=== PATIENT | male | born 1980 | race Caucasian/White ===

== ENCOUNTER 2025-05-06 13:47 | Emergency (ER) | payer MEDICAID ==
[~2025-05-06] VITALS: Ht 170.2 cm; Wt 97.0 kg
[2025-05-06] MEDS: HALOPERIDOL LACTATE 5MG/ML VIAL IM ONE ×2 (14:51→14:59)
[2025-05-06] MEDS: MIDAZOLAM HCL 2 MG/2 ML VIAL IM ONE ×2 (14:51→14:59)
[2025-05-06 14:59] VITALS: O2SAT 96
[2025-05-06] MEDS: DIPHENHYDRAMINE 50MG/ML VIAL IM ONE (14:59)
[2025-05-06 15:16] LABS: BASOPHILS % 0.6 % (0.0-2.0); EOSINOPHILS % 0.4 % (0.0-5.0); HEMATOCRIT. 44.2 % (42.0-52.0); HEMOGLOBIN. 14.9 g/dL (14.0-18.0); LYMPHOCYTES % 12.3 % (20.0-50.0); MEAN PLATELET VOLUME 7.1 fl (7.4-10.4); MONOCYTES % 5.0 % (2.0-8.0); NEUTROPHILS % 81.7 % (40.0-76.0); PLATELET 278 x1000/uL (130-400); RED BLOOD CELL COUNT 5.09 mill/uL (4.7-6.1); RED CELL DISTRIBUTION WIDTH 13.5 % (11.6-14.6)
[2025-05-06 15:29] LABS: CREATININE 1.4 mg/dL (0.6-1.3); UREA NITROGEN BLOOD 24 mg/dL (9-23)
[2025-05-06 15:30] LABS: ETHANOL BLOOD < 10 mg/dL (<10); PROTEIN TOTAL 7.6 g/dL (6.0-8.3)
[2025-05-06 15:31] LABS: ASPARTATE AMINOTRANSFERASE 88 IU/L (<34); BILIRUBIN DIRECT 0.6 mg/dL (<=3.0); BILIRUBIN TOTAL 2.0 mg/dL (0.1-1.0)
[2025-05-06 20:16] LABS: *AMPHETAMINES SCREEN URINE PRESUMPTIVE POSITIVE (NEGATIVE); *BARBITURATES SCREEN URINE NEGATIVE (NEGATIVE); *BENZODIAZEPINES SCREEN URINE PRESUMPTIVE POSITIVE (NEGATIVE); *COCAINE SCREEN URINE NEGATIVE (NEGATIVE); CANNABINOID URINE SCREEN NEGATIVE (NEGATIVE); ECSTASY MDMA SCREEN URINE CONF.TEST INDICATED (NEGATIVE); METHADONE URINE SCREEN NEGATIVE (NEGATIVE); OPIATES URINE SCREEN NEGATIVE (NEGATIVE); PHENCYCLIDINE URINE SCREEN NEGATIVE (NEGATIVE)
[2025-05-07] MEDS ORDERED: HYDROXYZINE 25MG TABLET PO PRN (12:30)
[2025-05-07] MEDS: LORAZEPAM 0.5MG TABLET PO SCH (13:00)
[2025-05-07] MEDS: QUETIAPINE FUMARATE 25MG TABLET PO SCH (13:00)
[2025-05-07] MEDS: MIRTAZAPINE 15MG TABLET PO SCH (21:38)
[2025-05-08] MEDS: QUETIAPINE FUMARATE 50MG TABLET PO SCH (22:24)
[2025-05-09 06:00] VITALS: TEMP 36.7
[2025-05-09 11:28] VITALS: BP 129/72; PULSE 87; RESP 16; O2SAT 100
== END 2025-05-09 11:39 | disposition home or self-care (01) ==
LOC: ER 13:47
DX: R45.1 Restlessness and agitation (principal); R45.851 Suicidal ideations; F19.10 Other psychoactive substance abuse, uncomplicated; F32.9 Major depressive disorder, single episode, unspecified; J45.909 Unspecified asthma, uncomplicated; Z79.899 Other long term (current) drug therapy; Z20.822 Contact with and (suspected) exposure to COVID-19
CPT/HCPCS: 80076; 80305; 80048; 80307; 80329; 80320; 85025; 36415; 93005; 96372; 99285; 87426; J1630; J2250; Z7610 ×5; G0480